=== PATIENT | female | born 1965 ===

== ENCOUNTER → 2023-11-20 09:10 | Outpatient (REF) | payer BC, SELFPAY | LOC: WDC 09:10 | PROVIDERS: ATTENDING PHYSICIAN Nurse Practitioner Adult Health; FAMILY PHYSICIAN Family Medicine | DX: N63.20 Unspecified lump in the left breast, unspecified quadrant (principal); N63.14 Unspecified lump in the right breast, lower inner quadrant | CPT/HCPCS: 76642 ==